=== PATIENT | male | born 1995 | race Caucasian/White ===

== ENCOUNTER 2019-05-14 18:34 | Inpatient (IN) | payer MEDICAID ==
[~2019-05-14] VITALS: Ht 177.8 cm; Wt 58.6 kg
[~2019-05-14 18:34] MED LIST: FLUO40CA9 PO; HYDR25CA PO; MEMA5TAB PO; ZOLP10TA PO
--- NOTE | 2019-05-14 19:29 | NUR ---
pt to room from lobby
--- NOTE | 2019-05-14 19:37 | NUR ---
FIRST CONTACT WITH PT. PT C/O SOB, AND DIZZINESS X 1 HOUR. PT'S AOX4. RESPS EVEN AND UNLABORED. ALL MONITORS INB PLACE. ALL LIGHT WITHIN REACH. AWAITING ORDERES.
--- NOTE | 2019-05-14 20:00 | NUR ---
LATE ENTRY FOR 20:00. 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 PT WAS PALE. APX4. NSR NOW.
[2019-05-14 20:13] LABS: BASOPHILS # (AUTO) 0.02 x10^3/uL (0-0.1); BASOPHILS % (AUTO) 0 % (0-1); EOSINOPHILS # (AUTO) 0.15 x10^3/uL (0-0.4); EOSINOPHILS % (AUTO) 2 % (1-7); LYMPHOCYTES # (AUTO) 2.03 x10^3/uL (1-3.4); LYMPHOCYTES % (AUTO) 30 % (22-44); MD NO; MEAN CORPUSCULAR HEMOGLOBIN 29.4 pg (27.5-34.5); MEAN CORPUSCULAR HGB CONC 33.9 g/dL (33.2-36.2); MEAN CORPUSCULAR VOLUME 86.7 fL (81-97); MEAN PLATELET VOLUME 7.5 fL (7.4-10.4); MONOCYTES # (AUTO) 0.51 x10^3/uL (0.2-0.8); MONOCYTES % (AUTO) 8 % (2-9); NEUTROPHILS # (AUTO) 4.13 x10^3/uL (1.8-6.8); NEUTROPHILS % (AUTO) 60 % (42-75); PLATELET COUNT 222 x10^3/uL (130-400); RED BLOOD COUNT 5.64 x10^6/uL (4.38-5.82); RED CELL DISTRIBUTION WIDTH 12.3 % (9.4-14.8)
[2019-05-14 20:15] LABS: ALBUMIN 4.5 g/dL (3.4-5.0); ANION GAP 7 mmol/L (5-15); CALCIUM 8.9 mg/dL (8.5-10.1); CHLORIDE 108 mmol/L (98-107); CREATININE 1.22 mg/dL (0.7-1.3)
[2019-05-14 20:19] LABS: TROPONIN I < 0.015 ng/mL (0.000-0.045)
--- NOTE | 2019-05-14 20:30 | NUR ---
Note chris in ED - 05/14/19 at 2126 by DARRICK PT HAD BRADYCARDIA FOR A WHILE AFTER LAB DROWN BLOOD. PT WAS PALE. PT'S AOX4.
--- NOTE | 2019-05-14 21:19 | NUR ---
REPORT GIVEN TO BHANU BROUSSARD. ALL QUESTIONS ANSWERED.
[2019-05-14 21:50] VITALS: BP 127/81
[2019-05-14] MEDS ORDERED: ACETAMINOPHEN 325 MG TABLET PO PRN (22:00)
[2019-05-14] MEDS ORDERED: ONDANSETRON ODT 4 MG PO PRN (22:00)
[2019-05-14] MEDS ORDERED: POLYETHYLENE GLYCOL 17 GM PACKET PO PRN (22:00)
[2019-05-14] MEDS ORDERED: BISACODYL 10 MG SUPP PR PRN (22:00)
[2019-05-14] MEDS: NICOTINE 14MG/24 HR PATCH.TD24 TD SCH (22:28)
[2019-05-14] MEDS: SODIUM CHLORIDE 0.9% 1,000 ML IV SCH (22:30)
[2019-05-15 00:58] VITALS: BP 115/68
[2019-05-15 00:59] LABS: AMPHETAMINE SCREEN, URINE Negative (Negative); BARBITURATE SCREEN, URINE Negative (Negative); BENZODIAZEPINE SCREEN, URINE Negative (Negative); CANNABINOID SCREEN, URINE Negative (Negative); COCAINE SCREEN, URINE Negative (Negative); METHADONE SCREEN, URINE Negative (Negative); OPIATE SCREEN, URINE Negative (Negative)
[2019-05-15 02:55] LABS: MD NO; MEAN CORPUSCULAR HEMOGLOBIN 28.5 pg (27.5-34.5); MEAN CORPUSCULAR HGB CONC 32.8 g/dL (33.2-36.2); MEAN CORPUSCULAR VOLUME 86.9 fL (81-97); PLATELET COUNT 198 x10^3/uL (130-400); RED BLOOD COUNT 5.32 x10^6/uL (4.38-5.82); RED CELL DISTRIBUTION WIDTH 12.4 % (9.4-14.8)
[2019-05-15 03:06] LABS: ALANINE AMINOTRANSFERASE 15 U/L (12-78); ALBUMIN 3.8 g/dL (3.4-5.0); ANION GAP 6 mmol/L (5-15); CALCIUM 8.4 mg/dL (8.5-10.1); CHLORIDE 109 mmol/L (98-107); CREATININE 1.15 mg/dL (0.7-1.3)
[2019-05-15 03:09] LABS: ALKALINE PHOSPHATASE 89 U/L (45-117); BILIRUBIN,TOTAL 0.5 mg/dL (0.2-1.0)
[2019-05-15 03:15] LABS: TROPONIN I < 0.015 ng/mL (0.000-0.045)
[2019-05-15 07:16] VITALS: BP 102/66
[2019-05-15 08:26] LABS: TROPONIN I < 0.015 ng/mL (0.000-0.045)
[2019-05-15] MEDS: SODIUM CHLORIDE 0.9% 1,000 ML IV SCH ×2 (08:30→21:01)
[2019-05-15] MEDS ORDERED: SENNA/DOCUSATE TABLET PO SCH (09:00)
[2019-05-15 13:42] LABS: HEMOGLOBIN A1C 5.3 % (4.2-6.3)
[2019-05-15 14:45] VITALS: BP 142/69
[2019-05-15 19:02] VITALS: BP 120/71
[2019-05-15] MEDS: NICOTINE 14MG/24 HR PATCH.TD24 TD SCH (21:02)
[2019-05-16 01:53] VITALS: BP 121/74
[2019-05-16] MEDS: SODIUM CHLORIDE 0.9% 1,000 ML IV SCH (03:30)
[2019-05-16 07:07] VITALS: BP 123/76
[2019-05-16 13:59] VITALS: BP 119/71
== END 2019-05-16 15:00 | disposition home or self-care (01) | DRG 312 ==
LOC: ED 20:36 → 5SO 21:37 → DCLOUNGE 05-16 14:52
PROVIDERS: ADMIT Internal Medicine; ATTEND Internal Medicine
DX: I95.1 Orthostatic hypotension (principal); I49.5 Sick sinus syndrome; F17.210 Nicotine dependence, cigarettes, uncomplicated; I45.5 Other specified heart block; F32.9 Major depressive disorder, single episode, unspecified; Z82.49 Family history of ischemic heart disease and other diseases of the circulatory system
CPT/HCPCS: 36415; 71045; 80048; 80053; 80307; 82040; 82533; 83036; 83735; 84443; 84484; 85025; 93005; 93306; 99285; G0378; J7030